=== PATIENT | female | born 1970 | race Caucasian/White ===

== ENCOUNTER → 2020-09-07 06:54 | Outpatient (CLI) | payer OTHER, SELFPAY ==
[2020-09-07 19:08] LABS: SARS-CoV-2 RNA PCR Negative
== END ==
PROVIDERS: PCP Internal Medicine; Visit Provider Internal Medicine
DX: Z20.822 Contact with and (suspected) exposure to COVID-19 (principal); R68.89 Other general symptoms and signs
CPT/HCPCS: C9803; U0003; U0005

== ENCOUNTER 2022-02-20 10:26 | Outpatient (CLI) | payer OTHER, SELFPAY ==
--- NOTE | 2022-02-20 | EST_ITS ---
Patient Info Name: Dominique Macias Age: 51 years : 1970 Gender: Female Ht: 64 in Wt: 170 lbs BSA: 1.89 m2 HR: 65 bpm BP: 128 / 83 mmHg Heart Rhythm: Sinus Rhythm Exam Date: 02/20/2022 11:11 AM Exam Location: [facility] Stress Patient Status: Outpatient Admit Date: 02/20/2022 Staff Ordering Physician: Bulmaro, Lakeisha Herrera [facility] Attending Provider: Bulmaro, Lakeisha Herrera [facility] Exercise Technologist: Angelika Bar CT Nurse: JEAN PIERRE CENTENO Exam Type: CA stress test treadmill Study Info Indications R07.9 - Chest pain, unspecified A treadmill exercise stress test was performed. Summary 1. Normal sinus rhythm - normal ECG. 2. Nondiagnostic upsloping ST segment depression noted following exercise. 3. Clinically and electrocardiographically negative exercise stress test at 90% of age predicted maximum heart rate. Protocol: Bdu Stress ECG Details Stage: REST Duration (min): 1 min : 3 sec Speed (mph): 0.0 Grade (%): 0 HR (bpm): 66 SBP (mmHg): 128 DBP (mmHg): 83 METS: --- Stage: REST Duration (min): 7 min : 3 sec Speed (mph): 0.0 Grade (%): 0 HR (bpm): 63 SBP (mmHg): 128 DBP (mmHg): 83 METS: --- Stage: STAGE 1 Duration (min): 1 min : 0 sec Speed (mph): 1.7 Grade (%): 10 HR (bpm): 108 SBP (mmHg): 128 DBP (mmHg): 83 METS: --- Stage: STAGE 1 Duration (min): 2 min : 0 sec Speed (mph): 1.7 Grade (%): 10 HR (bpm): 129 SBP (mmHg): 128 DBP (mmHg): 83 METS: --- Stage: STAGE 1 Duration (min): 3 min : 0 sec Speed (mph): 1.7 Grade (%): 10 HR (bpm): 141 SBP (mmHg): 151 DBP (mmHg): 94 METS: --- Stage: STAGE 2 Duration (min): 1 min : 0 sec Speed (mph): 2.5 Grade (%): 12 HR (bpm): 151 SBP (mmHg): 151 DBP (mmHg): 94 METS: --- Stage: STAGE 2 Duration (min): 1 min : 23 sec Speed (mph): 2.5 Grade (%): 12 HR (bpm): 155 SBP (mmHg): 151 DBP (mmHg): 94 METS: --- Stage: RECOVERY Duration (min): 0 min : 36 sec Speed (mph): 0.0 Grade (%): 0 HR (bpm): 146 SBP (mmHg): 142 DBP (mmHg): 75 METS: --- Stage: RECOVERY Duration (min): 1 min : 36 sec Speed (mph): 0.0 Grade (%): 0 HR (bpm): 118 SBP (mmHg): 142 DBP (mmHg): 75 METS: --- Stage: RECOVERY Duration (min): 2 min : 36 sec Speed (mph): 0.0 Grade (%): 0 HR (bpm): 108 SBP (mmHg): 155 DBP (mmHg): 82 METS: --- Stage: RECOVERY Duration (min): 3 min : 26 sec Speed (mph): 0.0 Grade (%): 0 HR (bpm): 98 SBP (mmHg): 155 DBP (mmHg): 82 METS: --- Rest HR: 63 bpm Peak HR: 155 bpm Rest Sys BP: 128 mmHg Peak Sys BP: 155 mmHg Max Pred HR: 171 bpm % Max Pred HR: 91 % Target HR: 145 bpm Max RPP: 24,025 bpm*mmHg Pereira Score: -1 Target HR Summary: Patient's target heart rate was achieved BP Response: Normal blood pressure response Termi
== END 2022-02-20 10:27 | disposition home or self-care (01) ==
LOC: ANHCARD 10:27
PROVIDERS: PCP Nurse Practitioner Family; Visit Provider Nurse Practitioner Family
DX: R07.9 Chest pain, unspecified (principal)
CPT/HCPCS: 93017

== ENCOUNTER 2022-10-31 16:31 | Outpatient (CLI) | payer OTHER, SELFPAY ==
[2022-10-31 17:34] LABS: Thyroid Stimulating Hormone 0.914 uIU/mL (0.465-4.680)
[2022-10-31 19:28] LABS: Hemoglobin A1C 5.4 % (<5.7)
[2022-10-31 19:41] LABS: T4 Thyroxine 7.07 ug/dL (5.53-11.0)
[2022-11-03 04:57] LABS: FSH 44.2 mIU/mL (***); LH 33.6 mIU/mL (***)
[2022-11-03 11:20] LABS: Insulin Level Total 3.5 uIU/mL (<=19.6)
[2022-11-04 12:19] LABS: Testosterone Total 23 ng/dL (2-45)
== END 2022-10-31 16:32 | disposition home or self-care (01) ==
LOC: ANHLAB 16:32
PROVIDERS: PCP Nurse Practitioner Family; Visit Provider Obstetrics & Gynecology
DX: N95.1 Menopausal and female climacteric states (principal)
CPT/HCPCS: 36415; 82672; 83001; 83002; 83036; 83525; 84403; 84436; 84443

== ENCOUNTER 2025-03-20 13:29 | Outpatient (CLI) | payer OTHER, MEDICAID, SELFPAY ==
--- NOTE | ~2025-03-20 | MR_ITS ---
EXAMINATION: MR hand LT wo/w con DATE: 03/20/2025 14:53 INDICATION: Left thumb pain and ulnar collateral ligament sprain post injury TECHNIQUE: Magnetic resonance imaging (MRI) of the left hand was performed without intravenous contrast to include the metacarpals and digits. Sequences included in axial, sagittal and coronal T1-weighted FSE and T2-weighted FS FSE, axial T1-weighted FS FSE and postcontrast axial, sagittal and coronal T1-weighted FS FSE. COMPARISON: Left wrist radiographs FINDINGS: There is mild increased signal, mild enhancement and mild thickening of the proximal aspect of the ulnar collateral ligament of the thumb without discrete discontinuity or displaced of the tendon consistent with moderate grade sprain/partial tear. The radial collateral ligament complex the thumb as well as the radial and ulnar collateral ligament complex at the remaining metacarpophalangeal and interphalangeal joints are normal. Bone alignment is normal with normal bone marrow signal throughout. Mild osteoarthritis at the first carpometacarpal, metacarpophalangeal and multiple interphalangeal joints. No joint effusions, tenosynovitis or other abnormal fluid collections. The flexor and extensor tendons of the hand and wrist are normal. Intrinsic musculature of the hand is unremarkable. No other abnormal enhancing lesions identified. IMPRESSION: 1. Moderate grade sprain/partial tear of the ulnar collateral ligament and the left thumb without discrete ligament discontinuity or displacement. Reviewed, dictated and finalized at location A.
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
== END 2025-03-20 13:30 | disposition home or self-care (01) ==
LOC: ANHIMG 13:30
PROVIDERS: PCP Nurse Practitioner Family; Visit Provider Plastic Surgery
DX: S63.592A Other specified sprain of left wrist, initial encounter (principal); X58.XXXA Exposure to other specified factors, initial encounter
CPT/HCPCS: 73220; A9577